=== PATIENT | female | born 1985 | race Hispanic/Latino ===

== ENCOUNTER 2023-01-03 10:25 | Outpatient (CLI) | payer SELFPAY ==
[2023-01-03] VITALS (10 sets, daily range): BP systolic 114–141; BP diastolic 69–74; PULSE 56–66
[2023-01-03 11:28] LABS: Basophils Percent Auto 0.3 % (0.2-1.2); Eosinophils Percent Auto 0.6 % (0-4.4); Hematocrit 35.9 % (37.0-47.0); Hemoglobin 11.8 g/dL (12.0-15.0); Immature Granulocyte Absolute 0.02 K/mm3 (0.00-0.031); Immature Granulocyte Percent A 0.3 % (0-0.5); Immature Platelet Fraction Pct 12.6 % (0.9-11.2); Lymphocytes Absolute Auto 1.65 K/mm3 (0.9-3.2); Lymphocytes Percent Auto 24.7 % (18.3-44.2); Mean Corpuscular HGB Conc 32.9 g/dl (32-36); Mean Corpuscular Hemoglobin 31.3 pg (26-34); Mean Corpuscular Volume 95.2 fl (80-100); Mean Platelet Volume 11.4 fl (7.4-10.4); Monocytes Absolute Auto 0.4 K/mm3 (0.1-0.6); Monocytes Percent Auto 6.6 % (2.6-8.5); Neutrophils Absolute Auto 4.5 K/mm3 (1.3-6.7); Neutrophils Percent Auto 67.5 % (45.5-73.1); Platelet Count Result 155 k/mm3 (150-375); Red Blood Count 3.77 M/mm3 (4.2-5.4); Red Cell Distribution Width 13.1 % (11.5-14.5); White Blood Count 6.7 K/mm3 (4.5-10.0)
[2023-01-03 11:34] LABS: Appearance Urine Clear (Clear); Bacteria Urine Rare /hpf; Bilirubin Urine Negative (Negative); Blood Urine Negative (Negative); Color Urine Yellow (Yellow); Glucose Urine UA Negative (Negative); Ketones Urine Negative (Negative); Leukocyte Esterase Ur 2+ LEU/UL (NEGATIVE); Nitrate Urine Negative (Negative); Non Pathogenic Casts 0-2; Protein Urine Negative (Negative); RBC Urine 0-2 /hpf (0-2); Specific Grav Ur 1.007 (1.001-1.035); Squamous Epithelial Cell Urine Few /hpf (Few); Urobilinogen Urine 0.2 mg/dL (<2.0)
[2023-01-03 11:39] LABS: Add Urine Microscopic? YES
[2023-01-03 11:40] LABS: Alanine Aminotransferase 11 U/L (6-35); Albumin Level 3.7 g/dL (3.5-5.1); Alkaline Phosphatase 164 U/L (38-126); Anion Gap 7 mmol/L (8-16); Aspartate Amino Transferase 18 U/L (14-36); Bilirubin,Total 0.9 mg/dL (0.2-1.3); Blood Urea Nitrogen 6 mg/dL (7-17); Carbon Dioxide 20 mmol/L (22-30); Chloride 107 mmol/L (98-107); Estimated Glomerular Filt Rate > 60; Glucose 87 mg/dL (65-110); Potassium 3.7 mmol/L (3.4-5.0); Sodium 134 mmol/L (137-145); Uric Acid 4.8 mg/dL (2.5-7.5)
[2023-01-03 12:50] LABS: Creatinine Urine 30.6 mg/dL; Total Protein Urine Random 11 mg/dL; Ur Ttl Prot Creatinine Ratio 0.36 mg/mg (0-0.20)
--- NOTE | 2023-01-03 12:56 | PC.NURSE ---
Dr Gomez notified of HIP labs, BP and heart tones.
== END 2023-01-03 13:05 | disposition home or self-care (01) ==
LOC: ANHOBOP 10:39 → ANHOBPP 10:41
PROVIDERS: Visit Provider Obstetrics & Gynecology
DX: O13.9 Gestational [pregnancy-induced] hypertension without significant proteinuria, unspecified trimester (principal); Z3A.00 Weeks of gestation of pregnancy not specified
CPT/HCPCS: 36415; 59025; 80053; 81001; 82570; 84156; 84550; 85025; 85055; 87086; 99199

== ENCOUNTER 2023-01-10 17:50 | Inpatient (IN) | payer BC, SELFPAY ==
[2023-01-10] VITALS (29 sets, daily range): BP systolic 105–145; BP diastolic 59–81; PULSE 58–86; RESP 18; TEMP 37.3; O2SAT 100; BMI 31.4
[2023-01-10 16:19] LABS: Basophils Percent Auto 0.3 % (0.2-1.2); Eosinophils Absolute Auto 0.1 K/mm3 (0-0.3); Eosinophils Percent Auto 0.8 % (0-4.4); Hematocrit 35.6 % (37.0-47.0); Hemoglobin 11.7 g/dL (12.0-15.0); Immature Granulocyte Absolute 0.02 K/mm3 (0.00-0.031); Immature Granulocyte Percent A 0.3 % (0-0.5); Lymphocytes Absolute Auto 1.73 K/mm3 (0.9-3.2); Lymphocytes Percent Auto 27.6 % (18.3-44.2); Mean Corpuscular HGB Conc 32.9 g/dl (32-36); Mean Corpuscular Hemoglobin 31.1 pg (26-34); Mean Corpuscular Volume 94.7 fl (80-100); Mean Platelet Volume 12.2 fl (7.4-10.4); Monocytes Absolute Auto 0.4 K/mm3 (0.1-0.6); Monocytes Percent Auto 6.5 % (2.6-8.5); Neutrophils Percent Auto 64.5 % (45.5-73.1); Platelet Count Result 133 k/mm3 (150-375); Red Blood Count 3.76 M/mm3 (4.2-5.4); Red Cell Distribution Width 13.3 % (11.5-14.5); White Blood Count 6.3 K/mm3 (4.5-10.0)
[2023-01-10 16:24] LABS: Appearance Urine Cloudy (Clear); Bacteria Urine 1+ /hpf; Bilirubin Urine Negative (Negative); Blood Urine Negative (Negative); Color Urine Yellow (Yellow); Glucose Urine UA Negative (Negative); Ketones Urine Negative (Negative); Leukocyte Esterase Ur 3+ LEU/UL (NEGATIVE); Need Manual Microscopic Reviewed; Nitrate Urine Negative (Negative); Non Pathogenic Casts 0-2; Protein Urine Negative (Negative); RBC Urine 0-2 /hpf (0-2); Specific Grav Ur 1.009 (1.001-1.035); Squamous Epithelial Cell Urine Many /hpf (Few)
[2023-01-10 16:28] LABS: Add Urine Microscopic? YES
[2023-01-10 16:32] LABS: Alanine Aminotransferase 12 U/L (6-35); Albumin Level 3.6 g/dL (3.5-5.1); Alkaline Phosphatase 179 U/L (38-126); Anion Gap 7 mmol/L (8-16); Aspartate Amino Transferase 19 U/L (14-36); Bilirubin,Total 0.8 mg/dL (0.2-1.3); Blood Urea Nitrogen 4 mg/dL (7-17); Carbon Dioxide 19 mmol/L (22-30); Chloride 107 mmol/L (98-107); Estimated Glomerular Filt Rate > 60; Glucose 84 mg/dL (65-110); Potassium 3.6 mmol/L (3.4-5.0); Sodium 133 mmol/L (137-145); Uric Acid 4.4 mg/dL (2.5-7.5)
[2023-01-10 17:57] LABS: Creatinine Urine 43.1 mg/dL; Total Protein Urine Random 9 mg/dL; Ur Ttl Prot Creatinine Ratio 0.21 mg/mg (0-0.20)
[2023-01-10] MEDS: MAGNESIUM SULF 4 GM/WATER100ML 4 GM/100 ML BAG IVPB (19:50)
[2023-01-10] MEDS: LACTATED RINGERS 1,000 ML 75 ML IV CONT (19:51)
[2023-01-10] MEDS: MAGNESIUM SULF 20GM/WATER500ML 500 ML 50 MG IV CONT (20:33)
[2023-01-10 22:21] LABS: Basophils Percent Auto 0.3 % (0.2-1.2); Eosinophils Percent Auto 0.5 % (0-4.4); Hematocrit 34.6 % (37.0-47.0); Hemoglobin 11.6 g/dL (12.0-15.0); Immature Granulocyte Absolute 0.01 K/mm3 (0.00-0.031); Immature Granulocyte Percent A 0.2 % (0-0.5); Immature Platelet Fraction Pct 14.6 % (0.9-11.2); Lymphocytes Absolute Auto 1.79 K/mm3 (0.9-3.2); Lymphocytes Percent Auto 28.3 % (18.3-44.2); Mean Corpuscular HGB Conc 33.5 g/dl (32-36); Mean Corpuscular Hemoglobin 31.8 pg (26-34); Mean Corpuscular Volume 94.8 fl (80-100); Mean Platelet Volume 11.7 fl (7.4-10.4); Monocytes Absolute Auto 0.3 K/mm3 (0.1-0.6); Monocytes Percent Auto 4.9 % (2.6-8.5); Neutrophils Absolute Auto 4.2 K/mm3 (1.3-6.7); Neutrophils Percent Auto 65.8 % (45.5-73.1); Platelet Count Result 143 k/mm3 (150-375); Red Blood Count 3.65 M/mm3 (4.2-5.4); Red Cell Distribution Width 13.2 % (11.5-14.5); White Blood Count 6.3 K/mm3 (4.5-10.0)
[2023-01-10 22:30] LABS: Alanine Aminotransferase 12 U/L (6-35); Albumin Level 3.3 g/dL (3.5-5.1); Alkaline Phosphatase 180 U/L (38-126); Anion Gap 10 mmol/L (8-16); Aspartate Amino Transferase 18 U/L (14-36); Bilirubin,Total 0.8 mg/dL (0.2-1.3); Blood Urea Nitrogen 4 mg/dL (7-17); Calcium 8.1 mg/dL (8.4-10.2); Carbon Dioxide 17 mmol/L (22-30); Chloride 108 mmol/L (98-107); Estimated CRCL calculation 112 ml/min; Estimated Glomerular Filt Rate > 60; Glucose 99 mg/dL (65-110); Potassium 3.4 mmol/L (3.4-5.0); Sodium 135 mmol/L (137-145)
[2023-01-10 23:09] LABS: HIV 1/2 Ab P24 Ag Result Negative (Negative); Uric Acid 4.6 mg/dL (2.5-7.5)
[2023-01-10 23:22] LABS: Hepatitis B Surface Antigen Negative (Negative); Rubella IgG Antibody 36.3 IU/ML
[2023-01-11] VITALS (75 sets, daily range): BP systolic 83–157; BP diastolic 40–104; PULSE 64–104; RESP 12–20; TEMP 36.2–36.9; O2SAT 97–100
[2023-01-11] MEDS: MAGNESIUM SULF 20GM/WATER500ML 500 ML 50 MG IV CONT (06:14)
[2023-01-11] MEDS: ACETAMINOPHEN 500 MG TABLET 1000 MG PO (06:32)
--- NOTE | 2023-01-11 07:19 | PM.IMHP ---
H&P: HPI History of Present Illness Date/Time: 01/11/23 07:19 Chief Complaint: Elevated blood pressures Narrative: Patient presents from the office for elevated blood pressues (160s systolic). Denies headache, vision changes, chest pain, dyspnea, RUQ pain or epigastric pain. Good movement. No hx of chronic HTN. Review of Systems Review of Systems: All systems reviewed & are unremarkable except as noted in HPI and below PMFSH Social History Social History Smoking status: Never smoker Second hand tobacco smoke exposure: No Substance use: never Lack of Transportation: No Lack of Food: Never True Current Housing: I Have Housing Concerned About Future Housing: No Difficulty Paying Gas/Electric Bills: No Difficulty Paying for Meds: No Currently Unemployed: No Education: Grade School Difficulty w/ Childcare or Family Care: No Spiritual care concerns: No Meds Home Medications and Allergies Home Medications Medication Instructions Recorded Confirmed Type vit no.95-ferrous 1 tablet PO DAILY 01/10/23 01/10/23 History fumarate 28 mg-folic acid 800 mcg tablet () Allergies Allergy/AdvReac Type Severity Reaction Status Date / Time No Known Allergies Allergy Verified 01/10/23 19:51 Vital Signs Vital Signs - 24 hr 01/10/23 16:02 01/10/23 16:15 01/10/23 16:30 Temperature Pulse Rate 64 Respiratory Rate Blood Pressure 137/77 134/77 129/73 Pulse Oximetry Oxygen Delivery 01/10/23 16:45 01/10/23 17:00 01/10/23 17:15 Temperature Pulse Rate 62 59 L 59 L Respiratory Rate Blood Pressure 133/78 132/76 126/76 Pulse Oximetry Oxygen Delivery 01/10/23 17:30 01/10/23 17:45 01/10/23 18:00 Temperature Pulse Rate 58 L 59 L 69 Respiratory Rate Blood Pressure 134/74 129/74 145/80 H Pulse Oximetry Oxygen Delivery 01/10/23 18:15 01/10/23 18:30 01/10/23 18:50 Temperature Pulse Rate 63 66 59 L Respiratory Rate Blood Pressure 127/78 127/75 134/76 Pulse Oximetry Oxygen Delivery 01/10/23 19:01 01/10/23 19:16 01/10/23 19:31 Temperature Pulse Rate 65 68 70 Respiratory Rate Blood Pressure 105/59 L 109/63 129/75 Pulse Oximetry Oxygen Delivery 01/10/23 19:46 01/10/23 20:01 01/10/23 20:16 Temperature Pulse Rate 74 84 86 Respiratory Rate Blood Pressure 136/71 124/67 121/68 Pulse Oximetry Oxygen Delivery 01/10/23 20:31 01/10/23 20:46 01/10/23 20:00 Temperature 99.1 F Pulse Rate 78 85 Respiratory Rate Blood Pressure 126/67 118/74 Pulse Oximetry Oxygen Delivery 01/10/23 21:00 01/10/23 21:16 01/10/23 21:31 Temperature Pulse Rate 86 84 82 Respiratory Rate Blood Pressure 121/74 120/68 116/66 Pulse Oximetry Oxygen Delivery 01/10/23 21:46 01/10/23 22:00 01/10/23 23:01 Temperature Pulse Rate 81 84 77 Respiratory Rate Blood Pressure 114/66 114/68 116/76 Pulse Oximetry Oxygen Delivery 01/10/23 23:56 01/11/23 00:00 01/11/23 03:16 Temperature 97.8 F Pulse Rate 83 90 Respiratory Rate Blood Pressure 133/81 122/77 Pulse Oximetry Oxygen Delivery 01/11/23 03:18 01/11/23 05:25 01/11/23 05:30 Temperature 97.5 F L Pulse Rate Respiratory Rate Blood Pressure Pulse Oximetry 98 98 Oxygen Delivery 01/11/23 05:35 01/11/23 05:40 01/11/23 05:45 Temperature Pulse Rate Respiratory Rate Blood Pressure Pulse Oximetry 98 98 98 Oxygen Delivery 01/11/23 05:50 01/11/23 05:55 01/11/23 06:00 Temperature Pulse Rate Respiratory Rate Blood Pressure Pulse Oximetry 98 99 99 Oxygen Delivery 01/11/23 06:05 01/11/23 06:10 01/11/23 06:15 Temperature Pulse Rate Respiratory Rate Blood Pressure Pulse Oximetry 98 100 99 Oxygen Delivery 01/11/23 06:20 01/11/23 06:25 01/11/23 06:30 Tem
--- NOTE | 2023-01-11 07:31 | WPDHPUPDATE1 ---
History and Physical Update Update Date/Time: 01/11/23 07:31 History and Physical has been reviewed, including an updated exam of the patient. There are NO changes in the patient's condition. Risks, benefits, and alternatives have been discussed and questions answered. Patient agrees to proceed with procedure.
[2023-01-11] MEDS: ceFAZolin 2 GM/D5W 50 ML 2 GM/50 ML BAG IVPB (07:36)
[2023-01-11] MEDS: KETOROLAC 30 MG/ML VIAL (*BKC) IV PUSH (08:05)
--- NOTE | 2023-01-11 08:44 | P.PCNOB_ITS ---
OB - Delivery Note Procedure Delivery date: 01/11/23 Pre-op diagnosis: Preeclampsia w severe features and Previous Delivery Post-op Diagnosis: Same Induction method: None Prior to decision for section, ACOG/SMFM labor guidelines were considered and discussed with the patient and staff. Decision made to proceed with the section.: Yes Procedure Performed: Repeat and Tubal Ligation Surgeon: Ronni Gomez MD Anesthesia type: Spinal Description of Procedure/Findings: The patient was taken to the operating room where she was placed in the dorsal supine position with a leftward tilt. The electronic monitor was placed and heart rate was found to be reassuring. She was prepped and draped in the normal sterile fashion, and anesthesia was checked to be adequate. A Pfannensteil skin incision was made with the scalpel and carried through to the underlying layer of fascia with the scalpel. The fascia was incised in the midline and the incision extended laterally with the John scissors. The superior aspect of the fascial incision was then grasped with Dashawn clamps, elevated, and the underlying rectus muscles dissected off bluntly and with John scissors. Attention was then turned to the inferior aspect of the fascial incision, which in similar fashion was grasped, elevated, and the rectus muscles dissected off.? The rectus muscles were then in the midline, and the peritoneum entered bluntly. The peritoneal incision was extended superiorly and inferiorly with good visualization of the bladder. With the bladder blade providing retraction and visualization, the lower uterine segment was incised in a transverse fashion with the scalpel. The uterine incision was then extended laterally. The bladder blade was removed and the infant's head was elevated and delivered atraumatically. The remainder of the was then delivered without difficulty, and the infant's nose and mouth were suctioned with the bulb suction. The umbilical cord was doubly clamped and cut. The infant was then handed off to the waiting nursing staff. Specimens then obtained as listed below. The placenta was then removed manually and the uterus was exteriorized and cleared of all clots and debris. The uterine incision was repaired with 0- Monocryl in a running interlocked fashion.A second layer of the same suture imbricated and obtained excellent hemostasis. At this time the right fallopian tube was cauterized and cut off of the mesosalpinx using the Ligasure device. It was transected at the cornua. Hemostasis was assured. The same procedure was repeated on the left side. The posterior cul-de-sac was manually cleared of all clots and debris. The uterus was returned to the abdomen. The gutters were then manually cleared of all clots and debris.? The uterine incision was visualized to be hemostatic. The fascia was reapproximated with 0-Vicryl in a running fashion. The subcutaneous tissues were irrigated with warmed normal saline, and hemostasis was assured. The skin was closed with 4-0 monocryl in a subcuticular stitch. Fundal pressure was applied to express remaining intrauterine clots and debris. The patient tolerated the procedure well. Sponge, lap, and needle counts were correct times three per nursing. The patient was taken to the recovery room in stable condition. Specimen: Yes (bilateral fallopian tubes) Estimated Blood Loss: 875 Urine Output: 450 Complications: No immediate complications Condition: Stable Disposition: PACU [place] Baby Weeks of gestation at delivery: 37
[2023-01-11] MEDS: OXYTOCIN 30 UNITS/NS 500 ML 30 UNITS/500 ML BAG 125 UNITS IV CONT (10:55)
--- NOTE | 2023-01-11 14:10 | PC.NURSE ---
1410 RN called to room. Pt's reports pt feeling dizzy . Pt denies pain, fundus firm, bleeding small, DTR's diminished . Pt talking with and translating upon initial assessment. Pt level of consciousness changes quickly and she becomes difficult to arouse. BP taken, 3 readings in 80's/40's range. O2 applied per mask at 10L. Mag pump turned off. Pt becomes unresponsive and pale. Rapid response called over head. Fundus becomes slightly boggy but firms with massage bleeding remains small, dtr's remain diminished. Blood pressures slowly improve and pt becomes responsive once again. Episode duration approximately 15 min, pt unresponsive approximately 5 min. Mag level drawn at 1423. Result 6.3. information relayed to OB physician and order received to restart Mag at 1 gm per hour. BP's as follows- 1415 83/40 HR 70 1417 113/52 HR 91 1422 95/61 HR 80 1424 99/59 HR 79 1426 107/59 HR 77 1428 104/61 HR 73 1434 105/61 HR 71
[2023-01-11] MEDS: LACTATED RINGERS 1,000 ML 75 ML IV CONT (14:30)
[2023-01-11 14:31] LABS: Rapid Plasma Reagin Non-Reactive (NonReactive)
[2023-01-11 14:42] LABS: Magnesium 6.3 mg/dL (1.6-2.3)
[2023-01-11] MEDS: MAGNESIUM SULF 20GM/WATER500ML 500 ML 25 MG IV CONT (18:58)
[2023-01-12] VITALS (7 sets, daily range): BP systolic 101–142; BP diastolic 61–75; PULSE 65–72; RESP 14–18; TEMP 35.4–37.1; O2SAT 95–100
[2023-01-12] MEDS: ACETAMINOPHEN 325 MG TABLET 650 MG PO (04:55)
[2023-01-12 05:55] LABS: Basophils Percent Auto 0.2 % (0.2-1.2); Eosinophils Percent Auto 0.2 % (0-4.4); Hematocrit 32.6 % (37.0-47.0); Hemoglobin 10.6 g/dL (12.0-15.0); Immature Granulocyte Absolute 0.03 K/mm3 (0.00-0.031); Immature Granulocyte Percent A 0.3 % (0-0.5); Immature Platelet Fraction Pct 13.6 % (0.9-11.2); Lymphocytes Absolute Auto 1.51 K/mm3 (0.9-3.2); Lymphocytes Percent Auto 13.2 % (18.3-44.2); Mean Corpuscular HGB Conc 32.5 g/dl (32-36); Mean Corpuscular Hemoglobin 31.7 pg (26-34); Mean Corpuscular Volume 97.6 fl (80-100); Mean Platelet Volume 12.2 fl (7.4-10.4); Monocytes Absolute Auto 0.5 K/mm3 (0.1-0.6); Monocytes Percent Auto 4.3 % (2.6-8.5); Neutrophils Absolute Auto 9.4 K/mm3 (1.3-6.7); Neutrophils Percent Auto 81.8 % (45.5-73.1); Platelet Count Result 138 k/mm3 (150-375); Red Blood Count 3.34 M/mm3 (4.2-5.4); Red Cell Distribution Width 13.4 % (11.5-14.5); White Blood Count 11.5 K/mm3 (4.5-10.0)
--- NOTE | 2023-01-12 07:38 | PM.OBPNVD ---
OB - PN: Subj Subjective Date/time seen: 01/12/23 07:38 Interval history: pp day 1 section, salpingectomy declines narcotics for pain management flatus present baby doing well OB - PN: Obj Data Labs 01/12/23 04:49 01/10/23 22:09 Labs: Laboratory Results - last 24 hr 01/10/23 01/11/23 01/12/23 22:09 14:23 04:49 WBC 11.5 H RBC 3.34 L Hgb 10.6 L Hct 32.6 L MCV 97.6 MCH 31.7 MCHC 32.5 RDW 13.4 Plt Count 138 L MPV 12.2 H Immature Gran % (Auto) 0.3 Neut % (Auto) 81.8 H Lymph % (Auto) 13.2 L Gray % (Auto) 4.3 Eos % (Auto) 0.2 Baso % (Auto) 0.2 Lymph # (Auto) 1.51 Gray # (Auto) 0.5 Eos # (Auto) 0.0 Baso # (Auto) 0.0 Abs Immat Gran (auto) 0.03 Absolute Neuts (auto) 9.4 H Absolute Nucleated RBC 0.0 Nucleated RBC % 0.0 % Immature Plt Fraction 13.6 H Magnesium 6.3 H RPR Non-reactive OB - PN A/P Plan day: 1 Plan: routine care Time Spent With Patient Time: Total time spent is greater than 50% in coordination of care (as documented) at patient's floor/unit and/or counseling patient: Review of Systems Review of Systems: All systems reviewed & are unremarkable except as noted in HPI and below Exam Const: General: cooperative, healthy appearing and comfortable Resp: Effort & Inspection: normal respiratory effort Cardio: Rate: regular rate Rhythm: regular rhythm GI: Other: Incision CDI Skin: General skin exam: normal color Neuro: General: patient oriented x3 Extrem: Right lower extremity: normal to inspection Left lower extremity: normal to inspection
[2023-01-12] MEDS: DOCUSATE SODIUM 100 MG CAPSULE PO ×2 (07:44→17:00)
[2023-01-12] MEDS: MULTIVIT/MIN/PREN/FOL AC/IRON TABLET 1 TAB PO (07:44)
[2023-01-12] MEDS: IBUPROFEN 600 MG TABLET PO ×2 (10:53→16:39)
[2023-01-12] MEDS: LIDOCAINE 5% PATCH 1 PATCH TRANSDERM (10:54)
[2023-01-12] MEDS: TETANUS,DIPHTHERIA,AC PERTUSSIS ADULT (0.5 ML) BOOSTRIX IM (10:54)
--- NOTE | 2023-01-12 11:45 | PC.NURSE ---
[id number] With assistance of [employer] Analyst #[id number] introductions were made, then consulted with patient to assess needs related to . Mother led the conversation with her?plans to feed?her infant, the?experience so far stating not having any milk and for two years with her first child. Mother works well with her with encouragement, education and plans to breastfeed and formula feed. Encouraged understanding of the benefits of skin to skin (demonstrating unwrapping infant and placing upright on her chest), stimulating with massage touch, changing positions to encourage wakefulness, how to watch for early feeding cues, responsive feeding, feeding on demand (aiming for 8-12 times in 24 hours, about every 2-3 hours), milk production, building/maintaining a milk supply, duration of feeding, signs of adequate intake/output and how to record on the feeding sheet. Infant is sleepy and reluctant having had a bottle of 38mls between [id number]. Nipple care reviewed with optimal latch and good positioning. Reviewed good handwashing when or touching the breast/nipples to prevent infection. Resources used to facilitate learning were used with the visual handouts in Tajik, QR codes, tool and Tajik guide. Mother voiced understanding of skin to skin, stimulating with massage touch, responsive feedings, hand expressed colostrum, talking to infant to encourage if it has been 2 -2.5 hours since the start of the last , to call if infant does not latch, or if there is discomfort with . Resources provided for inpatient/outpatient with feeding sheet and name written on the communication board. Parents voiced understanding of information, demonstrated learning and will call if there is a request for assistance. Reported to the Primary RN.
--- NOTE | 2023-01-12 12:42 | PC.NURSE ---
On 01/12/23, the student, Maria A Santiago, provided care and completed [facility] documentation on this patient. I have reviewed the student's documentation and agree with the findings.
--- NOTE | 2023-01-12 13:04 | WPDANLDNPN2 ---
Anes-Prog Note L&D-Neuraxial Date/Time: 01/12/23 13:04 Neuraxial medications: intrathecal PF morphine Opiod-related complaints: none Patient feedback: Patient satisfied with post-operative pain management.
--- NOTE | 2023-01-12 13:04 | WPDANLDPN2 ---
Anes-Prog Note L&D Date/Time: 01/12/23 13:04 Comfortable throughout: section Neuraxial method: spinal Epidural/Spinal procedure site: clean & non-tender Neuro status: Neuro function grossly intact. Cardiovascular status: normal Respiratory status: normal Airway patency: baseline Mental status: baseline Post-Op hydration status: normal Vital Signs: Last Vital Signs Temp 37.1 C 01/12/23 12:38 Pulse 67 01/12/23 11:25 Resp 14 01/12/23 11:25 BP 110/70 01/12/23 11:25 Pulse Ox 99 01/12/23 11:25 O2 Del Method Room Air 01/12/23 07:30 Pain score (VAS): 1 I/O: Intake & Output 01/11/23 01/12/23 01/12/23 23:59 07:59 15:59 Intake Total 1100 100 240 Output Total 3850 500 Balance -2750 -400 240 Post-procedural complaints: none Patient feedback: Patient satisfied with anesthetic care.
[2023-01-12] MEDS: HYDROcodone/acetaminophen (*CRX) 10-325 MG TABLET 1 TAB PO (16:39)
[2023-01-13] VITALS: BP 120/70
[2023-01-13] MEDS: HYDROcodone/acetaminophen (*CRX) 5-325 MG TABLET 1 TAB PO ×3 (00:17→11:48)
[2023-01-13 03:00] VITALS: BP 119/70
[2023-01-13] MEDS: MULTIVIT/MIN/PREN/FOL AC/IRON TABLET 1 TAB PO (07:43)
[2023-01-13] MEDS: IBUPROFEN 600 MG TABLET PO (07:43)
[2023-01-13] MEDS: DOCUSATE SODIUM 100 MG CAPSULE PO (07:43)
[2023-01-13 08:10] VITALS: BP 137/71; PULSE 66; RESP 18; TEMP 37; O2SAT 100
[2023-01-13 12:00] VITALS: BP 122/79; PULSE 71
--- NOTE | 2023-01-13 12:04 | PM.OBPNVD ---
OB - PN: Subj Subjective Date/time seen: 01/13/23 12:04 Interval history: pp day 1 section, salpingectomy declines narcotics for pain management flatus present baby doing well Patient comments: no complaints, pain well controlled, incisional pain, tolerating diet and flatus present OB - PN: Obj Data Labs 01/12/23 04:49 01/10/23 22:09 OB - PN A/P Plan day: 2 Plan: routine care Comments: POD#2 LTCS - no problems, Time Spent With Patient Time: Total time spent is greater than 50% in coordination of care (as documented) at patient's floor/unit and/or counseling patient: Exam Const: General: comfortable, no acute distress and alert Resp: Effort & Inspection: normal respiratory effort Auscultation: no crackles, no rales and no rhonchi Cardio: Rate: regular rate Heart sounds: no click, no murmurs and no rubs GI: Inspection: non-distended Auscultation: normal bowel sounds Other: Incision - CDI Extrem: General: normal to inspection, no pedal edema and no calf tenderness
--- NOTE | 2023-01-13 12:05 | PM.OBDSVD ---
DS: Admitting Diagnosis Discharge Date January 13, 2023 Admitting Diagnosis term OB - DS: Summary OB Procedures : None OB Procedures Intrapartum: OB Procedures: : None Peripartum Data Procedures: Procedures Operation Date: 01/11/23 07:30 Actual Procedure Side Surgeon p Section Not Applicable Ronni Gomez MD Time Spent with Patient Time attestation: Total time spent providing and/or coordinating discharge services: DS: Data Data Completed and Pending Completed studies during hospitalization: Pending at discharge 01/11/23 08:04 Surgical [PTH] Routine Surgical [PTH] Routine Discharge Plan Discharge Discharging Clinician: Izaiah Ho Patient Disposition: Home, Self-Care Activity: pelvic rest Diet: regular Patient Instructions: Antibiotic Form Stand Alone Forms: General Discharge Information Follow-up/Referrals: Izaiah Ho MD [Physician] - Discharge Medications: New oxycodone-acetaminophen 5-325 mg tablet 1 tablet PO Q4H PRN (Reason: pain) Qty: 25 0RF Continued PNV cmb#95-ferrous fumarate-FA [] 28 mg iron- 800 mcg Tablet 1 tablet PO DAILY Date of admission: 01/10/23 17:50 Primary Care Provider: UNKNOWN,DOCTOR Admitting Provider: Ronni Gomez Attending physician on admission: Ronni Gomez Condition: Stable
[2023-01-14 08:51] VITALS: BP 138/74; PULSE 78; RESP 18; TEMP 37.1; O2SAT 100
--- NOTE | 2023-01-14 21:35 | PM.OBTRLD ---
OB - Triage/Final Diagnosis Visit Information Comments/Additional reasons for admission: I have assessed the risk for this patient, Fany Aiken, and determined that she would benefit from observation care. Evaluation Laboratory results: Laboratory Tests 01/10/23 01/10/23 01/11/23 16:02 22:09 14:23 WBC 6.3 6.3 RBC 3.76 L 3.65 L Hgb 11.7 L 11.6 L Hct 35.6 L 34.6 L MCV 94.7 94.8 MCH 31.1 31.8 MCHC 32.9 33.5 RDW 13.3 13.2 Plt Count 133 L 143 L MPV 12.2 H 11.7 H Immature Gran % (Auto) 0.3 0.2 Neut % (Auto) 64.5 65.8 Lymph % (Auto) 27.6 28.3 O'Brien % (Auto) 6.5 4.9 Eos % (Auto) 0.8 0.5 Baso % (Auto) 0.3 0.3 Lymph # (Auto) 1.73 1.79 O'Brien # (Auto) 0.4 0.3 Eos # (Auto) 0.1 0.0 Baso # (Auto) 0.0 0.0 Abs Immat Gran (auto) 0.02 0.01 Absolute Neuts (auto) 4.0 4.2 Absolute Nucleated RBC 0.0 0.0 Nucleated RBC % 0.0 0.0 % Immature Plt Fraction 14.6 H Sodium 133 L 135 L Potassium 3.6 3.4 Chloride 107 108 H Carbon Dioxide 19 L 17 L Anion Gap 7 L 10 BUN 4 L 4 L Creatinine 0.40 L 0.50 L Estim Creat Clear Calc Not Reportable 112 Estimated GFR > 60 > 60 Glucose 84 99 Uric Acid 4.4 4.6 Calcium 9.0 8.1 L Magnesium 6.3 H Total Bilirubin 0.8 0.8 AST 19 18 ALT 12 12 Alkaline Phosphatase 179 H 180 H Total Protein 7.0 7.0 Albumin 3.6 3.3 L Urine Color Yellow Urine Appearance Cloudy H Urine pH 8.0 Ur Specific Beth[place] 1.009 Urine Protein Negative Urine Glucose (UA) Negative Urine Ketones Negative Ur Blood (Man) Negative Urine Nitrate Negative Urine Bilirubin Negative Urine Urobilinogen 1.0 Ur Leukocyte Esterase 3+ H Add Ur Microanalysis Reviewed Urine RBC 0-2 Urine WBC 6-10 Ur Squamous Epith Cells Many H Urine Bacteria 1+ H Urine Casts 0-2 U Random Total Protein 9 Urine Creatinine 43.1 Protein/Creat Ratio 2 0.21 H RPR Non-reactive Hep Bs Antigen Negative HIV 1&2 Ab/P24 Ag 4thGn Negative Rubella IgG Antibody 36.3 Blood Type A Positive Antibody Screen Negative 01/12/23 04:49 WBC 11.5 H RBC 3.34 L Hgb 10.6 L Hct 32.6 L MCV 97.6 MCH 31.7 MCHC 32.5 RDW 13.4 Plt Count 138 L MPV 12.2 H Immature Gran % (Auto) 0.3 Neut % (Auto) 81.8 H Lymph % (Auto) 13.2 L O'Brien % (Auto) 4.3 Eos % (Auto) 0.2 Baso % (Auto) 0.2 Lymph # (Auto) 1.51 O'Brien # (Auto) 0.5 Eos # (Auto) 0.0 Baso # (Auto) 0.0 Abs Immat Gran (auto) 0.03 Absolute Neuts (auto) 9.4 H Absolute Nucleated RBC 0.0 Nucleated RBC % 0.0 % Immature Plt Fraction 13.6 H Sodium Potassium Chloride Carbon Dioxide Anion Gap BUN Creatinine Estim Creat Clear Calc Estimated GFR Glucose Uric Acid Calcium Magnesium Total Bilirubin AST ALT Alkaline Phosphatase Total Protein Albumin Urine Color Urine Appearance Urine pH Ur Specific Bethany Urine Protein Urine Glucose (UA) Urine Ketones Ur Blood (Man) Urine Nitrate Urine Bilirubin Urine Urobilinogen Ur Leukocyte Esterase Add Ur Microanalysis Urine RBC Urine WBC Ur Squamous Epith Cells Urine Bacteria Urine Casts U Random Total Protein Urine Creatinine Protein/Creat Ratio 2 RPR Hep Bs Antigen HIV 1&2 Ab/P24 Ag 4thGn Rubella IgG Antibody Blood Type Antibody Screen Vital signs: Vital Signs - 24 hr 01/14/23 08:51 Temperature 98.7 F Pulse Rate 78 Respiratory Rate 18 Blood Pressure 138/74 Pulse Oximetry 100 Final Diagnosis (1) Severe preeclampsia: Code(s): O14.10 - Severe pre-eclampsia, unspecified trimester Status: Acute
== END 2023-01-13 15:30 | disposition home or self-care (01) | DRG 785 ==
LOC: ANHOBOP 18:04 → ANHOB2 01-12 03:56 → ANHLDR 01-14 08:51 → ANHOB2 01-14 08:51 → ANHOBPP 01-14 08:51
PROVIDERS: Admitting Provider Obstetrics & Gynecology; Visit Provider Obstetrics & Gynecology
PROC: 10D00Z1 Extraction of Products of Conception, Low, Open Approach (ICD-10-PCS; CPT 59514; principal; 2023-01-11 07:30)
DX: O14.14 Severe pre-eclampsia complicating childbirth (principal); Z37.0 Single live birth; Z3A.37 37 weeks gestation of pregnancy; O34.211 Maternal care for low transverse scar from previous cesarean delivery; Z30.2 Encounter for sterilization; Z23 Encounter for immunization
CPT/HCPCS: 36415; 80053; 81001; 82570; 83735; 84156; 84550; 85025; 85055; 86592; 86703; 86762; 86850; 86900; 86901; 87086; 87340; 88302; 88307; 90471; 90686; 90715; A9270; G0008; G0432; J0690; J1885; J2175; J2274; J2371; J2405; J2590; J3475; J7120